=== PATIENT | female | born 1965 ===

== ENCOUNTER 2017-10-30 09:42 | Emergency (ER) | payer OTHER ==
[2017-10-30 10:16] VITALS: PULSE 67; TEMP 99.2; BMI 33.3
--- NOTE | 2017-10-30 10:38 | C.PDOC ---
History Of Present Illness 52 year old female with no past medical history presents to the ER for 3 days of sinus pressure, nasal congestion, headache, ear fullness and dry cough. Patient states she has taken Theraflu and Advil with no relief. She denies fever, chills, phlegm, ear pain, nausea, vomiting, diarrhea or constipation. Chief Complaint (Nursing): Cough, Cold, Congestion Past Medical History Vital Signs: Last Vital Signs Temp 99.2 F 10/30/17 10:16 Pulse 67 10/30/17 10:16 Resp 16 10/30/17 10:16 BP 152/82 H 10/30/17 10:16 Pulse Ox 99 10/30/17 11:28 Family History: States: No Known Family Hx, Unknown Family Hx - Social History Hx Alcohol Use: No Hx Substance Use: No - Immunization History Hx Tetanus Toxoid Vaccination: No Hx Influenza Vaccination: No Hx Pneumococcal Vaccination: No Review Of Systems Constitutional: Negative for: Fever, Chills Eyes: Negative for: Vision Change ENT: Positive for: Nose Discharge, Other (ear fullness). Negative for: Ear Pain , Ear Discharge, Nose Pain, Throat Pain, Throat Swelling Cardiovascular: Negative for: Chest Pain, Palpitations Respiratory: Positive for: Cough. Negative for: Shortness of Breath, Sputum Gastrointestinal: Negative for: Nausea, Vomiting, Diarrhea, Constipation Genitourinary: Negative for: Dysuria Neurological: Positive for: Headache Physical Exam - Physical Exam Appears: Toxic, No Acute Distress Skin: Normal Color, Warm Head: Atraumatic, Normacephalic, Tenderness (frontal sinus pressure) Eye(s): bilateral: Normal Inspection, PERRL, EOMI Ear(s): Left: Normal (fluid bilateral ), Right: Normal Nose: No Discharge, No Epistaxis, No Tenderness Oral Mucosa: Moist Lymphatic: Adenopathy (left cervical lymphadenopathy ) Cardiovascular: Rhythm Regular Respiratory: Normal Breath Sounds, No Rales, No Rhonchi, No Stridor, No Wheezing ED Course And Treatment O2 Sat by Pulse Oximetry: 99 Medical Decision Making Medical Decision Making: Influenza Type A + Disposition Discussed With DrRoland: Saulo Alcala Doctor Will See Patient In The: ED - Disposition Referrals: [facility] [Outside] [facility] [Outside] Disposition: HOME/ ROUTINE Disposition Time: 11:26 Condition: GOOD Additional Instructions: Patient to return to the ER if symptoms progress or worsen. [facility]. 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 MD/DO has examined the patient and agrees with the treatment plan.
[2017-10-30 11:41] VITALS: BP 148/82; RESP 18; O2SAT 98
== END 2017-10-30 11:41 | disposition home or self-care (01) ==
LOC: C.ER 09:42
DX: J10.1 Influenza due to other identified influenza virus with other respiratory manifestations (principal)

== ENCOUNTER 2018-04-25 17:59 | Emergency (ER) | payer SELFPAY ==
[2018-04-25 18:00] VITALS: BMI 33.3
[2018-04-25 18:34] VITALS: BP 141/76; PULSE 55; TEMP 98.6; O2SAT 98
--- NOTE | 2018-04-25 19:42 | C.PDOC ---
History Of Present Illness 53 year old female presents to the emergency department with complaints of swelling to her fingers bilaterally with hand pain for one month. Patient denies trauma, and states that she has not taken OTC medications for the pain. Patient denies fever, weakness, and numbness. Time Seen by Provider: 04/25/18 19:17 Chief Complaint (Nursing): Abnormal Skin Integrity History Per: Patient History/Exam Limitations: no limitations Onset/Duration Of Symptoms: Other (one month) Current Symptoms Are (Timing): Still Present Location Of Injury: Right: Hand, Left: Hand Quality Of Symptoms: Painful, Swollen Past Medical History Reviewed: Historical Data, Nursing Documentation, Vital Signs Vital Signs: Last Vital Signs Temp 98.6 F 04/25/18 18:20 Pulse 55 L 04/25/18 18:20 Resp 16 04/25/18 18:20 BP 141/76 04/25/18 18:20 Pulse Ox 98 04/25/18 18:20 - Medical History PMH: No Chronic Diseases Surgical History: No Surg Hx Family History: States: No Known Family Hx - Social History Hx Alcohol Use: No Hx Substance Use: No - Immunization History Hx Tetanus Toxoid Vaccination: No Hx Influenza Vaccination: No Hx Pneumococcal Vaccination: No Review Of Systems Except As Marked, All Systems Reviewed And Found Negative. Constitutional: Negative for: Fever, Chills Musculoskeletal: Positive for: Hand Pain Neurological: Negative for: Weakness, Numbness Physical Exam - Physical Exam Appears: Non-toxic, No Acute Distress Skin: Normal Color, Warm, Dry Head: Atraumatic, Normacephalic Eye(s): bilateral: Normal Inspection Chest: Symmetrical, No Tenderness Extremity: Normal ROM, Capillary Refill (< 2 seconds), No Swelling, Other (visualized, palpable nodes to the DIP of the 2nd, 3rd, and 4th fingers of the hands bilaterally. No erythema. No fluctuant mass. ) Pulses: Left Radial: Normal, Right Radial: Normal Neurological/Psych: Oriented x3, Normal Speech, Normal Cognition ED Course And Treatment O2 Sat by Pulse Oximetry: 98 (RA) Pulse Ox Interpretation: Normal Progress Note: Plan: Motrin 600mg PO. Patient advised to follow-up in clinic. Disposition Counseled Patient/Family Regarding: Diagnosis, Need For Followup, Rx Given - Disposition Referrals: [facility] [Outside] Disposition: HOME/ ROUTINE Disposition Time: 19:41 Condition: STABLE Additional Instructions: Please follow up with PMD Take medications as directed Return to ER if swelling,redness or worse Prescriptions: Ibuprofen [Motrin] 600 mg PO Q6H #30 tab Instructions: Osteoarthritis (DC) Forms: [employer] (Swazi) Print Language: SYRIAN - Clinical Impression Clinical Impression: Arthralgia - PA / [employer]SEM[employer]ER [employer]E / Resident Statement MD/DO has reviewed & agrees with the documentation as recorded. - Scribe Statement The provider has reviewed the documentation as recorded by the Scribe (Viet Bauman) All medical record entries made by the Scribe were at my direction and personally dictated by me. I have reviewed the chart and agree that the record accurately reflects my personal performance of the history, physical exam, medical decision making, and the department course for this patient. I have also personally directed, reviewed, and agree with the discharge instructions and disposition.
[2018-04-25 19:59] VITALS: RESP 20
== END 2018-04-25 19:58 | disposition home or self-care (01) ==
LOC: C.ER 17:59
DX: M19.90 Unspecified osteoarthritis, unspecified site (principal)